=== PATIENT | male | born 1980 | race Hispanic/Latino ===

== ENCOUNTER 2022-11-04 06:01 | Emergency (ER) | payer BC ==
[2022-11-04] MEDS ORDERED: NA CHLORIDE 0.9% 1,000 ML ONE (06:31)
[2022-11-04 06:33] LABS: Protime INR 1.04
[2022-11-04 06:35] LABS: Absolute Lymphocytes (CBC) 2.4 K/uL (0.7-4.9); Hematocrit 46.8 % (39.6-49.0); Lymphocytes % 28.1 % (15.3-44.8); MCV 85.7 fL (80-100); MPV 8.7 fL (7.6-11.3); RBC Red Blood Cell Count 5.46 M/uL (4.33-5.43)
[2022-11-04 06:42] LABS: Albumin 4.1 g/dL (3.4-5.0); Bilirubin Direct 0.1 mg/dL (0-0.2); Bilirubin Indirect, Calculated 0.3 mg/dL (0.2-0.8); Bilirubin Total 0.4 mg/dL (0.2-1.0); Magnesium 2.3 mg/dL (1.6-2.4); Potassium 3.7 mEq/L (3.5-5.1); Protein, Total 8.2 g/dL (6.4-8.2); Troponin High Sensitivity 5.8 pg/mL (<58.9)
--- NOTE | 2022-11-04 07:53 | RAD REPORT ---
EXAM DESCRIPTION: Giuliano Single View11/04/2022 7:05 am CLINICAL HISTORY: Chest pain COMPARISON: 2012 FINDINGS: The lungs appear clear of acute infiltrate. The heart is normal size IMPRESSION: No acute abnormalities displayed
--- NOTE | 2022-11-04 07:53 | RAD REPORT ---
EXAM DESCRIPTION: CT - Angio Aorta For Dissection - 11/04/2022 7:26 am CLINICAL HISTORY: . Chest and abd pain COMPARISON: None TECHNIQUE: Computed tomography angiography of the chest, abdomen pelvis were obtained. 100 cc Isovue 370 was administered intravenously. Coronal and sagittal reconstruction were performed. MIP 3D reconstruction was performed All CT scans are performed using dose optimization technique as appropriate and may include automated exposure control or mA/KV adjustment according to patient size. FINDINGS: The opacification of the ascending thoracic aorta is suboptimal limiting evaluation. No aortic dissection involving the aortic arch, descending thoracic aorta and abdominal aorta. No ane urysm seen The celiac, SMA and CARLOS are patent . A lung consolidation is not present. A pericardial effusion is not seen. A pleural effusion is not no billie. No pericardial effusion Fatty liver Spleen, pancreas,adrenals and kidneys demonstrate no significant abnormality. There no evidence diverticulitis. Normal appendix Small umbilical hernias contain fat. Small inguinal hernias IMPRESSION: Limited evaluation of the ascending thoracic aorta. Otherwise, an aortic dissection not seen
[2022-11-04] MEDS ORDERED: FENTANYL CITR 100 MCG/2 ML ONE (08:05)
[2022-11-04] MEDS ORDERED: ONDANSETRON 4 MG/2 ML VIAL ONE (08:05)
--- NOTE | 2022-11-04 09:40 | EDPHYS ---
Physician Documentation [facility] Name: Kevyn Hogan Age: 42 yrs Sex: Male : 1980 Arrival Date: 11/04/2022 Time: 06:01 Bed 6 Private MD: ED Physician Akbar Leonard HPI: 11/04 06:13 This 42 yrs old Male presents to ER via Unassigned with complaints of Chest sp4 Pain. 07:14 This is a 42-year-old male who presents with a cute onset of midsternal chest pain sp4 starting at 4:45 AM.. Patient reports midsternal type pressure associated with some worsening with deep inspiration. No nausea or vomiting. No fever. Patient has history of elevated liver enzymes history of alcohol use once a week, also history of hyperlipidemia currently without any medication.. Historical: - Allergies: 06:15 No Known Allergies; pf1 - PMHx: 06:15 Hypercholesterolemia; pre diabetic; pf1 - PSHx: 06:15 left ACL; pf1 - Immunization history:: Adult Immunizations up to date, Last tetanus immunization: < 10 years ago Flu vaccine is up to date. - Social history:: Smoking status: Patient denies any tobacco usage or history of. Patient uses alcohol, occasionally. Patient/guardian denies using street drugs. - Family history:: not pertinent. ROS: 07:14 Constitutional: Negative for fever, chills, and weight loss, Cardiovascular: Negative sp4 for palpitations, and edema, positive for midsternal chest pain 07:14 All other systems are negative. Exam: 07:12 ECG was reviewed by the Attending Physician. EKG reveals normal sinus rhythm at the sp4 rate of 90. No ectopy, no ST elevation or depression 07:14 Constitutional: This is a well developed, well nourished patient who is awake, alert, sp4 and in no acute distress. Head/Face: Normocephalic, atraumatic. Eyes: Pupils equal round and reactive to light, extra-ocular motions intact. Lids and lashes normal. Conjunctiva and sclera are not injected. Cornea within normal limits. Periorbital areas with no swelling, redness, or edema. ENT: Nares patent. No nasal discharge, no septal abnormalities noted. Tympanic membranes are normal and external auditory canals are clear. Oropharynx with no redness, swelling, or masses, exudates, or evidence of obstruction, uvula midline. Mucous membranes moist. Neck: Trachea midline, no thyromegaly or masses palpated, and no cervical lymphadenopathy. Supple, full range of motion without nuchal rigidity, or vertebral point tenderness. Chest/axilla: Normal chest wall appearance and motion. Nontender with no deformity. No lesions are appreciated. Cardiovascular: Regular rate and rhythm with a normal S1 and S2. No gallops, murmurs, or rubs. Normal PMI, no JVD. No pulse deficits. Respiratory: Lungs have equal breath sounds bilaterally, clear to auscultation and percussion. No rales, rhonchi or wheezes noted. No increased work of breathing, no retractions or nasal flaring. Abdomen/GI: Soft, non-tender, with normal bowel sounds. No distension or tympany. No guarding or rebound. No evidence of tenderness throughout. Back: No spinal tenderness. No costovertebral tenderness. Skin: Warm, dry with normal turgor. Normal color with no rashes, no lesions, and no evidence of cellulitis. MS/ Extremity: Pulses equal, no cyanosis. Neurovascular intact. Full, normal range of motion. Neuro: Awake and alert, GCS 15, oriented to person, place, time, and situation. Cranial nerves II-XII grossly intact. Motor strength 5/5 in all extremities. Sensory grossly intact. Psych: Awake, alert, with orientation to person, place and time. Behavior, mood, and affect are within normal limits Vital Signs: 06:10 BP 151 / 86; Pulse 87; Resp 16; Temp 98.4; Pulse Ox 96% on R/A; Weight 107.95 kg; pf1 Height 5 ft. 9 in. ; Pain 7/10; 06:50 BP 131 / 80; Pulse 82; Resp 20; Pulse Ox 96% on R/A; rv 07:18 BP 144 / 83; Pulse 81; Resp 16; Pulse Ox 96% ; ko1 07:43 BP 138 / 87; Pulse 90; Resp 16; Pulse Ox 95% on R/A; db 09:52 BP 135 / 78; Pulse 96; Resp 16; Pulse Ox 95% on R/A; db 06:10 Body Mass Index 35.15 (107.95 kg, 175.26 cm) pf1 06:10 Pain Scale: Adult pf1 Patrice Coma Score: 06:51 Eye Response: spontaneous(4). Motor Response: obeys commands(6). Verbal Response: rv oriented(5). Total: 15. MDM: 06:04 Patient medically screened. sp4 07:12 Transition of care: After a detail discussion of the patient's case, care is sp4 transferred to Akbar Leonard MD. 07:14 HEART Score: History: Moderately Suspicious (1), ECG: Non specific repolarization sp4 disturbance / LBTB / PM (1), Age: < or = 45 years (0), Risk Factors: No Risk Factors Known (0), Troponin: < or = 1 x Normal Limit (0), Total Score = 2. Data reviewed: vital signs, nurses notes, lab test result(s), EKG, radiologic studies, CT scan. ED course: Patient is awaiting on CT report and will also request second troponin.. 08:11 ED course: Patient signed out to me on overnight shift by Dr. Blackman Patient is having only sp3 mild pain and could possibly represent esophageal spasm. Will administer fentanyl IV as a smooth muscle relaxer and pain medication. Initial troponin and laboratory values are negative. His CT scan of the chest and abdomen on an aorta protocol is also negative. EKG demonstrates no significant findings. Patient has a low heart score and if second troponin is negative, we will safely discharge him home with follow-up to his PCP.. 09:38 ED course: Laboratory values on the repeat troponin are normal. LFTs mildly elevated sp3 which patient endorses was present on prior blood work. He attributes it to alcohol intake which she is "cutting back". We will safely discharge him home at this time as he feels better after the fentanyl. I believe patient likely had esophageal spasm which was resolved with the smooth muscle dilator.. 11/04 06:35 Order name: Protime (+INR); Complete Time: 07:03 EDMS 11/04 06:37 Order name: CBC with Automated Diff; Complete Time: 07:03 EDMS 11/04 06:43 Order name: Basic Metabolic Panel; Complete Time: 07:03 EDMS 11/04 06:43 Order name: Liver (Hepatic) Function; Complete Time: 07: EDMS 11/04 06:43 Order name: Troponin High Sensitivity; Complete Time: 07:03 EDMS 11/04 06:43 Order name: NT PRO-BNP; Complete Time: 07:03 EDMS 11/04 06:43 Order name: Magnesium; Complete Time: 07:03 EDMS 11/04 07:04 Order name: Troponin High Sensitivity: 4 hours after first troponin; Complete Time: sp3 09:04 11/04 06:03 Order name: XRAY Chest (1 view); Complete Time: 08:11 sp4 11/04 06:21 Order name: CT Aorta for Dissection sp4 11/04 07:11 Order name: Angio Aorta For Dissection; Complete Time: 08:11 EDMS 11/04 06:03 Order name: EKG; Complete Time: 06:58 sp4 11/04 06:03 Order name: Cardiac monitoring; Complete Time: 06:10 sp4 11/04 06:03 Order name: EKG - Nurse/Tech; Complete Time: 06:10 sp4 11/04 06:03 Order name: IV Saline Lock; Complete Time: 06:10 sp4 11/04 06:03 Order name: Labs collected and sent; Complete Time: 06:10 sp4 11/04 06:03 Order name: O2 Per Protocol; Complete Time: 06:10 sp4 11/04 06:03 Order name: O2 Sat Monitoring; Complete Time: 06:10 sp4 EC:12 Rate is 90 beats/min. Rhythm is regular, Normal Sinus Rhythm. QRS [place] is Normal. MA sp4 interval is normal. QRS interval is normal. T waves are Inverted in lead III. No ST changes noted. Clinical impression: No evidence of ischemia. Interpreted by me. Administered Medications: 06:25 Drug: NS 0.9% IV 1000 ml Route: IV; Rate: 1 bolus; Site: right antecubital; rv 09:54 Follow up: Response: No adverse reaction; IV Status: Completed infusion; IV Intake: db 1000ml 07:56 Drug: Ondansetron IVP 4 mg Route: IVP; Site: right antecubital; db 09:53 Follow up: Response: No adverse reaction db 07:58 Drug: fentaNYL (PF) IVP 50 mcg Route: IVP; Site: right antecubital; db 09:53 Follow up: Response: No adverse reaction db Disposition Summary: 11/04/22 09:40 Discharge Ordered Location: Home sp3 Condition: Stable sp3 Diagnosis - Chest pain, esophageal spasm, gastritis sp3 Followup: sp3 - With: Private Physician - When: Upon discharge from the Emergency Department - Reason: Continuance of care Discharge Instructions: - Discharge Summary Sheet sp3 - Esophageal Spasm sp3 Forms: - Medication Reconciliation Form sp3 - Thank You Letter sp3 - Antibiotic Education sp3 - Prescription Opioid Use sp3 - Patient Portal Instructions sp3 Signatures: Dispatcher [employer] EDMS Maxim Soto, RN RN rv Akbar Leonard MD MD sp3 Parisa Erickson, RN RN db Dhara Stark RN RN pf1 Thien Cordero MD MD sp4 Corrections: (The following items were deleted from the chart) 08:19 06:58 BASIC METABOLIC PANEL+C.LAB.BRZ ordered. EDMS EDMS 08:19 06:58 CBC+H.LAB.BRZ ordered. EDMS EDMS 08:19 06:58 HEPATIC FUNCTION+C.LAB.BRZ ordered. EDMS EDMS 08:19 06:58 MAGNESIUM+C.LAB.BRZ ordered. EDMS EDMS 08:19 06:58 PROBNP+C.LAB.BRZ ordered. EDMS EDMS 08:19 06:58 PROTIME (+INR)+COAG.LAB.BRZ ordered. EDMS EDMS 08:19 06:58 Troponin High Sensitivity+C.LAB.BRZ ordered. EDMS EDMS
--- NOTE | 2022-11-04 09:40 | ER ---
Nurse's Notes [facility] Name: Kevyn Hogan Age: 42 yrs Sex: Male : 1980 Arrival Date: 11/04/2022 Time: 06:01 Bed 6 Private MD: Diagnosis: Chest pain, esophageal spasm, gastritis Presentation: 11/04 06:10 Chief complaint: Patient states: substernal chest pain of 7 that radiates to left pf1 jaw,onset 0445 while laying on the couch waiting to go to work. Coronavirus screen: Vaccine status: Patient reports receiving the 2nd dose of the covid vaccine. 3 doses of Moderna Client denies travel out of the [place] in the last 14 days. At this time, the client does not indicate any symptoms associated with coronavirus-19. Ebola Screen: Patient negative for fever greater than or equal to 101.5 degrees Fahrenheit, and additional compatible Ebola Virus Disease symptoms. Initial Sepsis Screen: Does the patient meet any 2 criteria? No. Patient's initial sepsis screen is negative. Does the patient have a suspected source of infection? No. Patient's initial sepsis screen is negative. Risk Assessment: Do you want to hurt yourself or someone else? Patient reports no desire to harm self or others. 06:10 Method Of Arrival: Ambulatory pf1 06:10 Acuity: ESTELA 2 pf1 06:26 Onset of symptoms was November 04, 2022. rv Triage Assessment: 06:25 General: Appears comfortable, Behavior is calm, cooperative. Pain: Complains of pain in rv chest Pain radiates to left jaw. Neuro: Level of Consciousness is awake, alert, obeys commands, Oriented to person, place, time, situation. Cardiovascular: Patient's skin is warm and dry. Rhythm is regular. Respiratory: Airway is patent Respiratory effort is even, unlabored. Derm: Skin is intact. Historical: - Allergies: 06:15 No Known Allergies; pf1 - PMHx: 06:15 Hypercholesterolemia; pre diabetic; pf1 - PSHx: 06:15 left ACL; pf1 - Immunization history:: Adult Immunizations up to date, Last tetanus immunization: < 10 years ago Flu vaccine is up to date. - Social history:: Smoking status: Patient denies any tobacco usage or history of. Patient uses alcohol, occasionally. Patient/guardian denies using street drugs. - Family history:: not pertinent. Screenin:10 [facility] ED Fall Risk Assessment (Adult) History of falling in the last 3 months, rv including since admission No falls in past 3 months (0 pts) Confusion or Disorientation No (0 pts) Intoxicated or Sedated No (0 pts) Impaired Gait No (0 pts) Mobility Assist Device Used No (0 pt) Altered Elimination No (0 pt) Score/Fall Risk Level 0 - 2 = Low Risk Oriented to surroundings, Maintained a safe environment, Educated pt \T\ family on fall prevention, incl call for assistance when getting out of bed, Assessed \T\ reinforced patient's understanding of fall precautions, Provided non-skid footwear, Hourly rounding (assess needs \T\ fall precautionary measures) done, Used ambulatory aids as needed (educated on \T\ assisted with), Used gait belt as appropriate. Abuse screen: Denies threats or abuse. Denies injuries from another. Nutritional screening: No deficits noted. Tuberculosis screening: No symptoms or risk factors identified. Assessment: 06:39 General: see triage assessment. as6 07:52 Reassessment: Patient appears in no apparent distress at this time. Patient and/or db family updated on plan of care and expected duration. Pain level reassessed. Patient is alert, oriented x 3, equal unlabored respirations, skin warm/dry/pink. Pain: Complains of pain in chest Pain began gradually. Neuro: Level of Consciousness is awake, alert, obeys commands, Oriented to person, place, time, situation. Cardiovascular: Reports chest pain. Respiratory: Airway is patent Respiratory effort is even, unlabored, Respiratory pattern is regular, symmetrical. 09:52 Pain: Complains of pain in EPIGASTRIC. db Vital Signs: 06:10 BP 151 / 86; Pulse 87; Resp 16; Temp 98.4; Pulse Ox 96% on R/A; Weight 107.95 kg; pf1 Height 5 ft. 9 in. ; Pain 7/10; 06:50 BP 131 / 80; Pulse 82; Resp 20; Pulse Ox 96% on R/A; rv 07:18 BP 144 / 83; Pulse 81; Resp 16; Pulse Ox 96% ; ko1 07:43 BP 138 / 87; Pulse 90; Resp 16; Pulse Ox 95% on R/A; db 09:52 BP 135 / 78; Pulse 96; Resp 16; Pulse Ox 95% on R/A; db 06:10 Body Mass Index 35.15 (107.95 kg, 175.26 cm) pf1 06:10 Pain Scale: Adult pf1 [place] Coma Score: 06:51 Eye Response: spontaneous(4). Motor Response: obeys commands(6). Verbal Response: rv oriented(5). Total: 15. ED Course: 06:03 Patient arrived in ED. jj6 06:03 Thien Cordero MD is Attending Physician. sp4 06:10 Maxim Soto, PEYMAN is Primary Nurse. rv 06:10 Inserted saline lock: 20 gauge in right antecubital area, using aseptic technique. as6 Blood collected. 06:11 Patient has correct armband on for positive identification. Placed in gown. Bed in low rv position. Call light in reach. Client placed on continuous cardiac and pulse oximetry monitoring. NIBP monitoring applied. manager monitoring on. 06:14 Triage completed. pf1 06:26 No provider procedures requiring assistance completed. rv 06:26 Arm band placed on right wrist. rv 06:39 Patient maintains SpO2 saturation greater than 95% on room air. as6 07:03 Attending Physician role handed off by Thien Cordero MD sp3 07:03 Akbar Leonard MD is Attending Physician. sp3 07:11 XRAY Chest (1 view) In Process Unspecified. EDMS 07:28 Angio Aorta For Dissection In Process Unspecified. EDMS 09:52 IV discontinued, intact, bleeding controlled, No redness/swelling at site. db 09:52 Provided Education on: DISCHARGE INSTRUCTIONS. db Administered Medications: 06:25 Drug: NS 0.9% IV 1000 ml Route: IV; Rate: 1 bolus; Site: right antecubital; rv 09:54 Follow up: Response: No adverse reaction; IV Status: Completed infusion; IV Intake: db 1000ml 07:56 Drug: Ondansetron IVP 4 mg Route: IVP; Site: right antecubital; db 09:53 Follow up: Response: No adverse reaction db 07:58 Drug: fentaNYL (PF) IVP 50 mcg Route: IVP; Site: right antecubital; db 09:53 Follow up: Response: No adverse reaction db Medication: 06:26 VIS not applicable for this client. rv Intake: 09:54 IV: 1000ml; Total: 1000ml. db Outcome: 09:40 Discharge ordered by sp3 09:52 Discharged to home ambulatory, with family. db 09:52 Condition: stable 09:52 Discharge instructions given to patient, Instructed on discharge instructions, follow up and referral plans. 09:54 Patient left the ED. db Signatures: Dispatcher [employer] EDMS Maxim Soto RN RN Akbar Cason MD MD sp3 Nay Leon jj6 Saul Martinez RN RN as6 Yoon Urban RN RN koParisa Saez RN RN Dhara Maria RN RN pf1 Thien Cordero MD MD sp4
[2022-11-04 09:59] VITALS: TEMP 98.4
[2022-11-04 10:04] VITALS: O2SAT 95
[2022-11-04 10:06] VITALS: BP 135/78
--- NOTE | 2022-11-04 19:16 | EKG ---
Test Date: 2022-11-04 Test Time: 06:08:04 Business Technology Professor: MARTÍN MEASUREMENT RESULTS: Intervals: Rate: 90 WV: 162 QRSD: 94 QT: 356 QTc: 435 [place]: P: 67 WV: 162 QRS: 67 T: 8 INTERPRETIVE STATEMENTS: Normal sinus rhythm Nonspecific ST and T wave abnormality Abnormal ECG No previous ECG available for comparison Electronically Signed On 11-04-22 19:15:23 CDT by Richard Llamas
== END 2022-11-04 09:54 | disposition home or self-care (01) ==
LOC: ER 06:01
DX: K22.4 Dyskinesia of esophagus (principal); K29.70 Gastritis, unspecified, without bleeding
CPT/HCPCS: 93005; 85025; 80048; 36415; 83735; 85610; 80076; 84484 ×2; 83880; 71275; 74175; 71045; Q9967; J3010; J2405; J7030; 96361; 96374; 96375; 99285

== ENCOUNTER 2024-08-11 19:48 | Emergency (ER) | payer BC ==
[2024-08-11] MEDS ORDERED: HYDROCODONE/APAP 5/325 MG TAB ONE (21:45)
--- NOTE | 2024-08-11 21:57 | ER ---
Nurse's Notes [facility] Name: Kevyn Hogan Age: 44 yrs Sex: Male : 1980 Arrival Date: 08/11/2024 Time: 19:48 Bed 12 Private MD: Diagnosis: Internal derangement of the left knee, left knee sprain Presentation: 08/11 20:18 Chief complaint: Patient states: fell ladder, missed last 3 steps, landing on feet. lg3 pain to left knee. i think i tore my ACL. Coronavirus screen: Client denies travel out of the [place] in the last 14 days. At this time, the client does not indicate any symptoms associated with coronavirus-19. Ebola Screen: No symptoms or risks identified at this time. Initial Sepsis Screen: Does the patient meet any 2 criteria? No. Patient's initial sepsis screen is negative. Does the patient have a suspected source of infection? No. Patient's initial sepsis screen is negative. Risk Assessment: Do you want to hurt yourself or someone else? Patient reports no desire to harm self or others. Onset of symptoms was August 11, 2024. 20:18 Method Of Arrival: Wheelchair lg3 20:18 Acuity: ESTELA 4 lg3 Triage Assessment: 20:19 General: Appears in no apparent distress. comfortable, Behavior is calm, cooperative. lg3 Pain: Complains of pain in left knee. EENT: No deficits noted. No signs and/or symptoms were reported regarding the EENT system. Neuro: No deficits noted. Dominguez Agitation-Sedation Scale (RASS): 0 - Alert and Calm Level of Consciousness is awake, alert, obeys commands, Oriented to person, place, time, situation. Cardiovascular: No deficits noted. Denies chest pain, shortness of breath, Capillary refill < 3 seconds Clubbing of nail beds is absent JVD is absent Patient's skin is warm and dry. Respiratory: No deficits noted. Airway is patent Respiratory effort is even, unlabored, Respiratory pattern is regular, symmetrical. GI: No deficits noted. No signs and/or symptoms were reported involving the gastrointestinal system. : No signs and/or symptoms were reported regarding the genitourinary system. Derm: No deficits noted. No signs and/or symptoms reported regarding the dermatologic system. Skin is intact, is healthy with good turgor, Skin is dry, Skin is normal, Skin temperature is warm. Musculoskeletal: Circulation, motion, and sensation intact. Range of motion: intact in all extremities, Reports pain in left knee. Historical: - Allergies: 20:19 No Known Allergies; lg3 - Home Meds: 20:19 Zepbound 12.5 mg/0.5 mL subcutaneous Pen Injector every week [Active]; Repatha Syringe lg3 140 mg/mL subcutaneous Syringe every 2 weeks [Active]; - PMHx: 20:19 Hypercholesterolemia; PRE DIABETIC; lg3 - PSHx: 20:19 right ACL (Left ACL); lg3 - Immunization history:: Adult Immunizations up to date. - Infectious Disease History:: Denies. - Social history:: Smoking status: Patient denies any tobacco usage or history of. Patient uses alcohol, occasionally. Patient/guardian denies using street drugs. Screenin:28 [facility] ED Fall Risk Assessment (Adult) History of falling in the last 3 months, lg3 including since admission No falls in past 3 months (0 pts) Confusion or Disorientation No (0 pts) Intoxicated or Sedated No (0 pts) Impaired Gait No (0 pts) Mobility Assist Device Used No (0 pt) Altered Elimination No (0 pt) Score/Fall Risk Level 0 - 2 = Low Risk Oriented to surroundings, Maintained a safe environment, Educated pt \T\ family on fall prevention, incl call for assistance when getting out of bed, Assessed \T\ reinforced patient's understanding of fall precautions. Abuse screen: Denies threats or abuse. Denies injuries from another. Nutritional screening: No deficits noted. Tuberculosis screening: No symptoms or risk factors identified. Assessment: 20:28 General: see triage assessment. lg3 22:01 Reassessment: Patient and/or family updated on plan of care and expected duration. Pain br2 level reassessed. Patient is alert, oriented x 3, equal unlabored respirations, skin warm/dry/pink. Patient states feeling better. Vital Signs: 20:18 BP 115 / 74; Pulse 104; Resp 16 S; Temp 97.8(O); Pulse Ox 98% on R/A; Weight 86.64 kg lg3 (R); Height 5 ft. 9 in. (R); Pain 5/10; 20:18 Body Mass Index 28.21 (86.64 kg, 175.26 cm) lg3 20:18 Pain Scale: Adult lg3 ED Course: 20:01 Patient arrived in ED. gm2 20:02 Akbar Leonard MD is Attending Physician. sp3 20:19 Triage completed. lg3 20:19 Arm band placed on right wrist. lg3 20:28 Patient has correct armband on for positive identification. Placed in gown. Bed in low lg3 position. Call light in reach. Client placed on continuous cardiac and pulse oximetry monitoring. NIBP monitoring applied. Door closed. Noise minimized. Warm blanket given. Pillow given. Family accompanied patient. 21:30 Knee Left 3 View XRAY In Process Unspecified. EDMS 22:01 No provider procedures requiring assistance completed. Patient did not have IV access br2 during this emergency room visit. Administered Medications: 21:56 Drug: HYDROcodone-acetaminophen PO 5 mg-325 mg 2 tabs PO once Route: PO; br2 22:02 Follow up: Response: Medication administered at discharge. br2 Medication: 20:28 VIS not applicable for this client. lg3 Outcome: 21:56 Discharge ordered by . sp3 22:01 Discharged to home with crutches, br2 22:01 Condition: good 22:01 Discharge instructions given to patient, Instructed on discharge instructions, follow up and referral plans. crutch walking, Demonstrated understanding of Prescriptions given X 1, 22:02 Patient left the ED. br2 Signatures: Dispatcher [employer] EDMS Amada Colon RN RN lg3 Akbar Leonard MD MD sp3 Tami Emerson gm2 Marge Crocker RN RN br2 Corrections: (The following items were deleted from the chart) 20:21 20:19 PSHx: Left ACL; lg3 lg3
--- NOTE | 2024-08-11 21:57 | EDPHYS ---
Physician Documentation [facility] Name: Kevyn Hogan Age: 44 yrs Sex: Male : 1980 Arrival Date: 08/11/2024 Time: 19:48 Bed 12 Private MD: ED Physician Akbar Leonard HPI: 08/11 21:43 This 44 yrs old Male presents to ER via Wheelchair with complaints of Left sp3 Knee Injury. 21:43 44-year-old male with history of hyperlipidemia and prior right sided ACL injury now sp3 presents with left-sided knee pain after falling off a ladder flat-footed and his knee taking the brunt of the weight. No other injury noted. He states he feels exactly like how he felt when his right ACL was torn. No other symptoms in the ankle, hip or other part of the body. No head injury. Review of systems otherwise negative.. Historical: - Allergies: 20:19 No Known Allergies; lg3 - Home Meds: 20:19 Zepbound 12.5 mg/0.5 mL subcutaneous Pen Injector every week [Active]; Repatha Syringe lg3 140 mg/mL subcutaneous Syringe every 2 weeks [Active]; - PMHx: 20:19 Hypercholesterolemia; PRE DIABETIC; lg3 - PSHx: 20:19 right ACL (Left ACL); lg3 - Immunization history:: Adult Immunizations up to date. - Infectious Disease History:: Denies. - Social history:: Smoking status: Patient denies any tobacco usage or history of. Patient uses alcohol, occasionally. Patient/guardian denies using street drugs. ROS: 21:50 Constitutional: Negative for fever, chills, and weight loss, Eyes: Negative for injury, sp3 pain, redness, and discharge, ENT: Negative for injury, pain, and discharge, Neck: Negative for injury, pain, and swelling, Cardiovascular: Negative for chest pain, palpitations, and edema, Respiratory: Negative for shortness of breath, cough, wheezing, and pleuritic chest pain, Abdomen/GI: Negative for abdominal pain, nausea, vomiting, diarrhea, and constipation, Back: Negative for injury and pain, Skin: Negative for injury, rash, and discoloration, Neuro: Negative for headache, weakness, numbness, tingling, and seizure, Psych: Negative for depression, anxiety, suicide ideation, homicidal ideation, and hallucinations, Allergy/Immunology: Negative for hives, rash, and allergies, Endocrine: Negative for neck swelling, polydipsia, polyuria, polyphagia, and marked weight changes, Hematologic/Lymphatic: Negative for swollen nodes, abnormal bleeding, and unusual bruising, 21:50 All other systems are negative, Exam: 21:53 Constitutional: This is a well developed, well nourished patient who is awake, alert, sp3 and in no acute distress. Head/Face: Normocephalic, atraumatic. Eyes: Pupils equal round and reactive to light, extra-ocular motions intact. Lids and lashes normal. Conjunctiva and sclera are non-icteric and not injected. Cornea within normal limits. Periorbital areas with no swelling, redness, or edema. Neck: Trachea midline, no thyromegaly or masses palpated, and no cervical lymphadenopathy. Supple, full range of motion without nuchal rigidity, or vertebral point tenderness. No Meningismus. Chest/axilla: Normal chest wall appearance and motion. Nontender with no deformity. No lesions are appreciated. Cardiovascular: Regular rate and rhythm with a normal S1 and S2. No gallops, murmurs, or rubs. Normal PMI, no JVD. No pulse deficits. Respiratory: Lungs have equal breath sounds bilaterally, clear to auscultation and percussion. No rales, rhonchi or wheezes noted. No increased work of breathing, no retractions or nasal flaring. Abdomen/GI: Soft, non-tender, with normal bowel sounds. No distension or tympany. No guarding or rebound. No evidence of tenderness throughout. Skin: Warm, dry with normal turgor. Normal color with no rashes, no lesions, and no evidence of cellulitis. Neuro: Awake and alert, GCS 15, oriented to person, place, time, and situation. Cranial nerves II-XII grossly intact. Motor strength 5/5 in all extremities. Sensory grossly intact. Cerebellar exam normal. Normal gait. Psych: Awake, alert, with orientation to person, place and time. Behavior, mood, and affect are within normal limits. 21:53 Musculoskeletal/extremity: Mild laxity noted in the left knee joint. No effusion noted. Distal exam normal.. Vital Signs: 20:18 BP 115 / 74; Pulse 104; Resp 16 S; Temp 97.8(O); Pulse Ox 98% on R/A; Weight 86.64 kg lg3 (R); Height 5 ft. 9 in. (R); Pain 5/10; 20:18 Body Mass Index 28.21 (86.64 kg, 175.26 cm) lg3 20:18 Pain Scale: Adult lg3 MDM: 20:18 Medical Screening Exam initiated sp3 21:56 Data reviewed: vital signs, nurses notes, radiologic studies. ED course: Differential sp3 diagnosis includes internal derangement of the knee versus ACL injury versus knee sprain versus fracture. X-ray is normal. Will place a knee immobilizer and outpatient follow-up with orthopedics for outpatient MRI and further workup.. 08/11 20:28 Order name: Knee Left 3 View XRAY sp3 08/11 21:42 Order name: Knee Immobilizer; Complete Time: 21:57 sp3 08/11 21:42 Order name: Crutches; Complete Time: 21:57 sp3 Administered Medications: 21:56 Drug: HYDROcodone-acetaminophen PO 5 mg-325 mg 2 tabs PO once Route: PO; br2 22:02 Follow up: Response: Medication administered at discharge. br2 Disposition Summary: 08/11/24 21:56 Discharge Ordered Notes: Location: Home sp3 Condition: Stable sp3 Diagnosis - Internal derangement of the left knee, left knee sprain sp3 Followup: sp3 - With: Private Physician - When: Upon discharge from the Emergency Department - Reason: Continuance of care Discharge Instructions: - Discharge Summary Sheet sp3 - How to Use a Knee Immobilizer sp3 - Knee Sprain, Adult sp3 Forms: - Medication Reconciliation Form sp3 - Antibiotic Education sp3 - Prescription Opioid Use sp3 - Patient Portal Instructions sp3 - Leadership Thank You Letter sp3 Prescriptions: - Tramadol 50 mg Oral Tablet - take 1 tablet ORAL route every 8 hours as needed; 12 tablet; Refills: 0, sp3 Product Selection Permitted Signatures: Dispatcher [employer] Amada Yu RN RN lg3 Akbar Leonard MD MD sp3 Marge Crocker RN RN br2 Corrections: (The following items were deleted from the chart) 20:21 20:19 PSHx: Left ACL; lg3 lg3
--- NOTE | 2024-08-11 22:22 | RAD REPORT ---
Exam:Knee Left 3 View HISTORY: Left knee pain FINDINGS: 9 mm bony/calcific density with a sclerotic border probably is chronic and represents a loose body wi thin the anterior aspect of the knee. No acute fracture or dislocation suspected. No significant joint effusion seen. If the patient continues to have symptoms to suggest an occult fracture, ligamentous or meniscal inju ry then MRI would be recommended.
[2024-08-11 22:38] VITALS: BP 115/74; TEMP 97.8; O2SAT 98
== END 2024-08-11 22:02 | disposition home or self-care (01) ==
LOC: ER 19:48
DX: M23.92 Unspecified internal derangement of left knee (principal); S83.92XA Sprain of unspecified site of left knee, initial encounter; W11.XXXA Fall on and from ladder, initial encounter
CPT/HCPCS: 99284